=== PATIENT | female | born 1970 | race Caucasian/White ===

== ENCOUNTER 2024-11-01 07:07 | Outpatient (CLI) | payer OTHER, SELFPAY ==
--- OUTSIDE RECORDS SUMMARY | 2024-09-25 09:00 | XMS_ITS | Encounter Summary ---
Author Organization [facility] er Address [address] [place] [address] Care Team Providers Care Tugboat Pilot Name Role Phone Gem Salazar APRN Primary Care Provider Reason for Visit * Reason Comments Cyst Cyst on lower left b ack - possible cellulitis.Started on 09/17 chest congestion Chest congestion sin ce 09/23 - possibly due to traveling Encounter Details Date Type Department Care Team (Late st Contact Info) Description 09/25/2024 9:00 AM CDT Office Visit [facility] [address] [place] [address] Gem Salazar, WALL SCRAPER [address] [place] [address] Cellulitis of buttock, left (Primary Dx) Social History Tobacco Use Types Packs/Day Years Used Date Smoking Tobacco: Former Cigarettes 1 8 0 01/1988 - 01/1996 Smokeless Tobacco: Never Alcohol Use Standard Drinks/Week Comments Not Currently 20 (1 standard drink = 0.6 oz pu re alcohol) B1300 Health Literacy Answer Date Recor ded How often do you need to hav e someone help you when you read instructions, pamphlets, or other written material from your doctor or pharmacy? Never 07/01/2024 [facility] Utilities Answer Date Recorded In the past 12 months has e electric, gas, oil, or water company threatened to shut off services in your home? No 07/01/2024 Humiliation, Afraid, Rape, and Kick questionnair e Answer Date Recorded Within the last year, have y ou been afraid of your partner or ex-partner? No 08/15/2024 Within the last year, have y ou been humiliated or emotionally abused in other ways by your partner or ex-partner? No Within the last year, have y ou been kicked, hit, slapped, or otherwise physically hurt by your partner or ex-partner? No 08/15/2024 Within the last year, have y ou been raped or forced to have any kind of sexual activity by your partner or ex-partner? No 08/15/2024 Social Connection and Isolation Panel [NHANES] A nswer Date Recorded In a typical week, how many times do you talk on the phone with family, friends, or neighbors? Once a week 07/01/19 How often do you get togethe r with friends or relatives? Twice a week 07/01/2024 How often do you attend [facility] or taoist services? 1 to 4 times per year 07/01/2024 Do you belong to any clubs o r organizations such as gnosticism groups, unions, fraternal or athletic groups, or school groups? No 07/01/2024 How often do you attend meet ings of the clubs or organizations you belong to? Never 07/01/2024 Are you , , di vorced, , never , or living with a partner? 07/01/2024 AUDIT-C Answer Date Recorded Q1: How often do you have a drink containing alc ohol? 2-3 times a week 07/01/2024 Q2: How many drinks containi ng alcohol do you have on a typical day when you are drinking? 3 or 4 07/01/2024 Q3: How often do you have si x or more drinks on one occasion? Less than monthly 07/01/2024 Overall Financial Resource Strain (CARDIA) Answe r Date Recorded How hard is it for you to pa y for the very basics like food, housing, medical care, and heating? Not very hard 07/01/2024 PHQ-2 Answer Date Recorded PHQ-9 Total Score 0 09/11/2024 [facility] - Occupational Stress Questionnaire Answer Date Recorded Do you feel stress - tense, restless, nervous, or anxious, or unable to sleep at night because your mind is troubled all the time - these days? Only a little 07/01/2024 Exercise Vital Sign Answer Date Recorde d On average, how many days pe r week do you engage in moderate to strenuous exercise (like a brisk walk)? 1 day 07/01/2024 On average, how many minutes do you engage in exercise at this level? 10 min 07/01/2024 Hunger Vital Sign Answer Date Recorded Within the past 12 months, y ou worried that your food would run out before you got the money to buy more. Never true 07/01/19 25 Within the past 12 months, t he food you bought just didn't last and you didn't have money to get more. Never true 07/01/2024 PRAPARE - Transportation Answer Date Re corded In the past 12 months, has l ack of transportation kept you from medical appointments or from getting medications? No 06/15 In the past 12 months, has l ack of transportation kept you from meetings, work, or from getting things needed for daily living? No 07/01/2024 Housing Stability Vital Sign Answer Durga e Recorded In the last 12 months, was t here a time when you were not able to pay the mortgage or rent on time? No 11/17/2022 In the last 12 months, how many places have you lived? 2 11/17/2022 In the last 12 months, was t here a time when you did not have a steady place to sleep or slept in a correction (including now)? No 11/17/2022 Housing Stability Vital Sign Answer Durga e Recorded In the last 12 months, was t here a time when you were not able to pay the mortgage or rent on time? No 07/01/2024 In the past 12 months, how m any times have you moved where you were living? 0 07/01/2024 At any time in the past 12 [facility], were you homeless or living in a correction (including now)? No 07/01/2024 Interpersonal Safety Questionnaire Answer Date Recorded How often does anyone, sharda corona family and friends, physically hurt you? Never 08/15/2024 How often does anyone, sharda corona family and friends, insult or talk down to you? Never 08/15/2024 How often does anyone, sharda corona family and friends, threaten you with harm? Never 08/15/2024 How often does anyone, sharda corona family and friends, threaten you with harm? Never 08/15/2024 Education Answer Date Recorded What is the highest level of school you have completed or the highest degree you have received? Bachelor's degree (e.g., BA, AB, BS) 03/09/2021 Comments No Sex and Gender Information Value Date Recorded Sex Assigned at Female 07/11/2023 1:56 PM CHUMMER Legal Sex Female 8:18 PM CDT Gender Identity Female 07/11/2023 1:56 PM CHUMMER Sexual Orientation Straight 07/11/2023 1: 56 PM CHUMMER Occupation Industry Job Start Date Job End Date in [place], [place] Not on file Not on file Not on file documented as of this encounter Last Filed Vital Signs Vital Sign Reading Time Taken Comments Blood Pressure 143/85 09/25/2024 8:53 AM CDT Pulse 82 09/25/2024 8:53 AM CDT Temperature 36.8 C (98.3 F) 09/25/2024 8:53 AM CDT Respiratory Rate 16 09/25/2024 8:53 AM CDT Oxygen Saturation 94% 09/25/2024 8:53 AM CDT Inhaled Oxygen Concentration - - Weight 103 kg (226 lb) 09/25/2024 8:53 AM CDT Height 176.3 cm (5' 9.41) 09/25/2024 8:53 AM CD T Body Mass Index 32.98 09/25/2024 8:53 AM CDT documented in this encounter Patient Instructions * Patient Instructions* Gem Salazar APRN - 09/25/2024 9:00 AM CDT Start Cephalexin (Keflex) 1 tablet 4 x day for 10 days Start Mupirocin ointment topically 3 x day Hot packs topically up to 4 x day documented in this encounter Progress Notes * Gem Salazar, WALL SCRAPER - 09/25/2024 9:00 AM CDT Images from the original note were not included. Subjective Patient ID: Heather Gallardo is a 53 y.o. female. Chief Complaint Patient presents with Cyst Cyst on lower left back - possible cellulitis. Started on 09/17 chest congestion Chest congestion since 09/23 - possibly due to traveling HPI A provider reviewed the following portions of the patient's chart in this encounter and updated as appropriate: Tobacco Allergies Meds Problems Med Hx Surg Hx Fam Hx Review of Systems Constitutional: Negative. Negative for fatigue and fever. HENT: Negative. Negative for congestion, rhinorrhea and sore throat. Eyes: Negative. Respiratory: Negative. Negative for cough, chest tightness, shortness of breath and wheezing. Cardiovascular: Negative. Negative for chest pain, palpitations and leg swelling. Gastrointestinal: Negative. Negative for abdominal pain, constipation, diarrhea, nausea and vomiting. Endocrine: Negative. Genitourinary: Negative. Negative for dysuria, frequency and urgency. Musculoskeletal: Negative. Negative for arthralgias, gait problem and joint swelling. Skin: Positive for wound. Negative for color change and rash. Allergic/Immunologic: Negative. Neurological: Negative. Negative for dizziness, speech difficulty, numbness and headaches. Hematological: Negative. Psychiatric/Behavioral: Negative. Negative for agitation, behavioral problems, confusion, self-injury, sleep disturbance and suicidal ideas. The patient is not nervous/anxious. Objective Physical Exam Constitutional: Appearance: Normal appearance. She is well-developed and well-groomed. Cardiovascular: Rate and Rhythm: Normal rate and regular rhythm. Pulses: Normal pulses. Heart sounds: Normal heart sounds. Pulmonary: Effort: Pulmonary effort is normal. Breath sounds: Normal breath sounds and air entry. Skin: Findings: Erythema and wound present. Comments: 1 cm by 1 cm circular dark brown slough on right upper butt cheek. Slight redness around area measuring 5 cm by 4 cm. Neurological: General: No focal deficit present. Mental Status: She is alert and oriented to person, place, and time. Psychiatric: Mood and Affect: Mood normal. Behavior: Behavior normal. Behavior is cooperative. Thought Content: Thought content normal. Judgment: Judgment normal. Assessment/Plan Problem List Items Addressed This Visit Cellulitis of buttock, left - Primary Start Cephalexin (Keflex) 1 tablet 4 x day for 10 days Start Mupirocin ointment topically 3 x day Hot packs topically up to 4 x day Relevant Medications cephalexin (KEFLEX) 500 MG capsule mupirocin (BACTROBAN) 2 % ointment documented in this encounter Miscellaneous Notes * Assessment & Plan Note - Gem Salazar APRN - 09/25/2024 12:38 PM CDT Associated Problem(s): Cellulitis of buttock, left Start Cephalexin (Keflex) 1 tablet 4 x day for 10 days Start Mupirocin ointment topically 3 x day Hot packs topically up to 4 x day documented in this encounter Plan of Treatment Upcoming Encounters Date Type Department Care Team (Late st Contact Info) Description 11/14/2024 1:00 PM CDT Office Visit [facility] [address] [place], [place] [phone] Santa Schroeder, DPM [address] [place] [phone] 11/22/2024 1:00 PM CDT Appointment [facility] [address] [place] [phone] documented as of this encounter Visit Diagnoses Diagnosis Cellulitis of buttock, left- Primary documented in this encounter Care Teams Tugboat Pilot Relationship Specialty Start Date End Date Gem Salazar APRN [address] [place] [id number] PCP - General Family Medicine 10/19/22 documented as of this encounter
--- NOTE | 2024-11-01 07:15 | CRLHL7_ITS ---
For Patients: As a result of the Century Cures Act, medical imaging exams and procedure reports are released immediately into your electronic medical record. You may view this report before your referring provider. If you have questions, please contact your health care provider. Indication: Spondylosis with radiculopathy. Technique: MRI of the cervical spine was performed without the use of intravenous contrast. Comparison: None relevant available. Findings: The vertebral body heights appear maintained without evidence of fracture. No discrete T1 hypointense marrow infiltrating process. Mild multilevel disc height loss and degeneration. Straightening of the cervical lordosis. No abnormal cord signal. C2-3: No spinal canal or neural foraminal narrowing. Mild left facet arthropathy. C3-4: Disc degeneration without spinal canal narrowing. Mild left neural foraminal narrowing secondary to facet arthropathy. Right neural foramina is patent. C4-5: No spinal canal or neural foraminal narrowing. Mild facet arthropathy. C5-6: Disc osteophyte complex results in mild spinal canal narrowing. Moderately severe right and moderate left neural foraminal narrowing secondary to uncovertebral joint and facet arthropathy. C6-7: Disc degeneration with Modic type 2 endplate change. Disc osteophyte complex results in mild spinal canal narrowing. Moderately severe left and moderate right neural foraminal narrowing secondary to uncovertebral joint and facet arthropathy. C7-T1: No spinal canal or neural foraminal narrowing. Impression: 1. At C5-6, mild spinal canal with moderately severe right and moderate left neural foraminal narrowing. 2. At C6-7, mild spinal canal with moderately severe left and moderate right neural foraminal stenosis. 3. No abnormal cord signal. Dictated by Zelalem Perry MD @ 11/01/2024 3:16:47 PM (Electronically Signed)
--- NOTE | 2024-11-01 08:15 | CRLHL7_ITS ---
For Patients: As a result of the Century Cures Act, medical imaging exams and procedure reports are released immediately into your electronic medical record. You may view this report before your referring provider. If you have questions, please contact your health care provider. Indication: Spondylosis. Radiculopathy. Technique: Multiplanar, multisequence MRI of the lumbar spine was performed without intravenous contrast. Comparison: None relevant available. Findings: There are 5 lumbar type vertebral segments identified. The vertebral body heights are maintained without evidence of fracture. There is no discrete T1 hypointense marrow infiltrating process. The conus medullaris terminates at L1, normal. Cauda equina appears unremarkable. T12-L1: No spinal canal or neural foraminal stenosis. L1-2: No spinal canal or neural foraminal stenosis. L2-3: No spinal canal or neural foraminal stenosis. L3-4: No spinal canal or neural foraminal stenosis. L4-5: Disc degeneration. Disc bulge with facet arthropathy resulting in mild spinal canal narrowing. Mild right neural foraminal narrowing. Mild facet arthropathy. L5-S1: Disc degeneration, with Modic type 1 endplate change. Disc bulge results in mild to moderate left lateral recess narrowing. Encroachment without overt compression of the descending left S1 nerve. Moderate left and mild right neural foraminal narrowing. Moderate facet arthropathy. Moderate sacroiliac joint osteoarthritis. Impression: 1. At L5-S1, [id number] left lateral recess stenosis. Moderate left neural foraminal narrowing. 2. At L4-5, mild spinal canal and right neural foraminal narrowing. Dictated by Zelalem Perry MD @ 11/01/2024 3:24:21 PM (Electronically Signed)
--- OUTSIDE RECORDS SUMMARY | 2024-11-02 00:31 | XMS_ITS | Encounter Summary ---
Author Organization [facility] er Address [address] [place] [address] Care Team Providers Care Field Ring Assembler Name Role Phone Gem Salazar APRN Primary Care Provider Reason for Visit * Reason Comments Med Refill Encounter Details Date Type Department Care Team (Late st Contact Info) Description 10/17/2024 Refill [place] [address] [place] [address] Gem Salazar, PHLEBOTOMIST LAB ASSISTANT [address] [place], [place] [phone] Hypertension, unspecified type Social History Tobacco Use Types Packs/Day Years [...] from your doctor or pharmacy? Never 07/01/2024 [facility] Utilities Answer Date Recorded In the past [...] week 07/01/2024 How often do you attend chur ch or roman catholic services? 1 to 4 times per year 07/01/2024 Do you belong to any clubs o r organizations such as denominational groups, unions, fraternal or athletic groups, or [...] Date Recorded PHQ-9 Total Score 0 09/11/2024 [facility] of Occupat ional Health - Occupational Stress [...] place to sleep or slept in a detention (including now)? No 11/17/2022 Housing Stability Vital Sign Answer Durga e Recorded In the last 12 months, was t here a time when you were not able to pay the mortgage or rent on time? No 07/01/2024 In the past 12 months, how m any times have you moved where you were living? 0 07/01/2024 At any time in the past 12 m [facility], were you homeless or living in a detention (including now)? No 07/01/2024 Interpersonal Safety Questionnaire Answer Date Recorded How often does anyone, sharda corona family and friends, physically hurt you? Never 08/15/2024 How often does anyone, sharda corona family and friends, insult or talk down to you? Never 08/15/2024 How often does anyone, sharda corona family and friends, threaten you with harm? Never 08/15/2024 How often does anyone, inclu ding family and friends, threaten you with harm? Never 08/15/2024 Education Answer Date Recorded What is the highest level of school you have completed or the highest degree you have received? Bachelor's degree (e.g., BA, AB, BS) 03/09/2021 Comments No Sex and Gender Information Value Date Recorded Sex Assigned at Female 07/11/2023 1:56 PM CAFE OPERATOR Legal Sex Female 8:18 PM CDT Gender Identity Female 07/11/2023 1:56 PM CAFE OPERATOR Sexual Orientation Straight 07/11/2023 1: 56 PM CAFE OPERATOR Occupation Industry Job Start Date Job End Date in [place], [place] Not on file Not on file Not on file documented as of this encounter Miscellaneous Notes * Telephone Encounter - Pretty Guo MA - 10/23/2024 7:55 AM CDT Renewal sent to requesting pharmacy 09/12/2024 #90 +3 refills. losartan (Cozaar) 50 MG tablet Sig: Take 1 tablet (50 mg total) by mouth 1 (one) time each day On file. Sent to pharmacy as: Losartan Potassium 50 MG Oral Tablet (Cozaar) Class: Normal Route: Oral E-Prescribing Status: Receipt confirmed by pharmacy (09/12/2024 9:01 AM CDT) Pharmacy [address] documented in this encounter Plan of Treatment Upcoming Encounters Date Type Department Care Team (Late st Contact Info) Description 11/14/2024 1:00 PM CDT [facility] Visit [facility] [address] [place] [address] Santa Schroeder DPM [address] [place] [phone] 11/22/2024 1:00 PM CDT Appointment [facility] [address] [place] [address] documented as of this encounter Visit Diagnoses Diagnosis Hypertension, unspecified type documented in this encounter Care Teams Field Ring Assembler Relationship Specialty Start Date End Date Gem Salazar, PHLEBOTOMIST LAB ASSISTANT [address] [place] [id number] PCP - General Family Medicine 10/19/22 documented as of this encounter
--- OUTSIDE RECORDS SUMMARY | 2024-11-02 00:31 | XMS_ITS | Encounter Summary ---
Author Organization [facility] er Address [address] [place] [address] Care Team Providers Care Resist Coater Developer Name Role Phone HomeGem wrightOzzy WADE Primary Care Provider Reason for Visit * Reason Onset Date Comments Med Refill 12/07/2020 Encounter Details Date Type Department Care Team (Late st Contact Info) Description 12/07/2020 Refill [place] [address] [place] [address] Chel Gaitan MD Dysthymia Social History Tobacco Use Types Packs/Day Years Used Date Smoking Tobacco: Former Cigarettes 1 8 0 01/1988 - 01/1996 Smokeless Tobacco: Never Alcohol Use Standard Drinks/Week Comments Yes 7 (1 standard drink = 0.6 oz pur e alcohol) occasional AUDIT-C Answer Date Recorded Frequency of Alcohol Consumption Not on file 08/01/2018 Average Number of Drinks 1 or 2 019 Frequency of Binge Drinking Not on file 07/14 PHQ-2 Answer Date Recorded PHQ-9 Total Score 0 11/19/2020 Comments No Sex and Gender Information Value Date Recorded Sex Assigned at Female 07/11/2023 1:56 PM PLATE MILL MILL HAND Legal Sex Female 8:18 PM CDT Gender Identity Female 07/11/2023 1:56 PM PLATE MILL MILL HAND Sexual Orientation Straight 07/11/2023 1: 56 PM PLATE MILL MILL HAND documented as of this encounter Miscellaneous Notes * Telephone Encounter - Guillermina Fields RN - 12/07/2020 4:34 PM CDT Please advise on refill * Telephone Encounter - Delmis Leung LPN - 12/07/2020 3:05 PM CDT Last visit in provider department: 11/19/2020 Last visit requested medication was discussed: 11/25/19 Aleida Hooper Upcoming appointment with provider: Visit date not found Last Rx: 11/25/19 #90 3 refills by Aleida Hopoer Requested Prescriptions Pending Prescriptions Disp Refills ??? FLUoxetine (PROzac) 20 MG capsule 90 capsule 3 Sig: Take 1 capsule (20 mg total) by mouth 1 (one) time each day 11/19/20 PHQ9-0 GAD7-0 Vitals: BP Readings from Last 2 Encounters: 11/19/20 126/80 05/25/20 128/72 Patient is due for CP appointment. PSR/Nurse: Please contact patient to assist with scheduling. documented in this encounter Plan of Treatment Upcoming Encounters Date Type Department Care Team (Late st Contact Info) Description 11/14/2024 1:00 PM CDT [facility] [address] [place], [place] [phone] Santa Schroeder, DPM [address] [place] [phone] 11/22/2024 1:00 PM CDT Appointment [facility] [address] [place], [place] [phone] documented as of this encounter Visit Diagnoses Diagnosis Dysthymia Dysthymic disorder documented in this encounter Care Teams Resist Coater Developer Relationship Specialty Start Date End Date Gem Salazar APRN [address] [place] [phone] PCP - General Family Medicine 10/19/22 documented as of this encounter
--- OUTSIDE RECORDS SUMMARY | 2024-11-02 00:31 | XMS_ITS | Encounter Summary ---
Author Organization [facility] er Address [address] [place] [address] Care Team Providers Care Director Agricultural Services Name Role Phone Gem Salazar APRN Primary Care Provider Reason for Visit * Reason Onset Date Comments Med Refill 08/25/2023 Encounter Details Date Type Department Care Team (Late st Contact Info) Description 08/25/[address] [place] [address] Gem Salazar, EDUCATIONAL INTERPRETER [address] [place] [address] Anxiety and depression Social History Tobacco Use Types Packs/Day Years Used Date Smoking Tobacco: Former Cigarettes 1 8 0 01/1988 - 01/1996 Smokeless Tobacco: Never Alcohol Use Standard Drinks/Week Comments Not Currently 20 (1 standard drink = 0.6 oz pu re alcohol) Humiliation, Afraid, Rape, and Kick questionnair e Answer Date Recorded Within the last year, have y ou been afraid of your partner or ex-partner? No 11/17/2022 Within the last year, have y ou been humiliated or emotionally abused in other ways by your partner or ex-partner? No Within the last year, have y ou been kicked, hit, slapped, or otherwise physically hurt by your partner or ex-partner? No 11/17/2022 Within the last year, have y ou been raped or forced to have any kind of sexual activity by your partner or ex-partner? No 11/17/2022 Social Connection and Isolat ion Panel [NHANES] Answer Date Recorded In a typical week, how many times do you talk on the phone with family, friends, or neighbors? More than three times a week 11/17/2022 How often do you get togethe r with friends or relatives? More than three times a week 11/17/2022 How often do you attend chur or latter-day services? 1 to 4 times per year 11/17/2022 Do you belong to any clubs o r organizations such as hindu groups, unions, fraternal or athletic groups, or school groups? No 11/17/2022 How often do you attend meet ings of the clubs or organizations you belong to? Never 11/17/2022 Are you , , di vorced, , never , or living with a partner? 11/17/2022 AUDIT-C Answer Date Recorded Q1: How often do you have a drink containing alc ohol? 2-3 times a week 11/17/2022 Q2: How many drinks containi ng alcohol do you have on a typical day when you are drinking? 3 or 4 11/17/2022 Q3: How often do you have si x or more drinks on one occasion? Less than monthly 11/17/2022 Overall Financial Resource Strain (CARDIA) Answe r Date Recorded How hard is it for you to pa y for the very basics like food, housing, medical care, and heating? Not hard at all 11/17/2022 PHQ-2 Answer Date Recorded PHQ-9 Total Score 1 07/24/2023 [facility] - Occupational Stress Questionnaire Answer Date Recorded Do you feel stress - tense, restless, nervous, or anxious, or unable to sleep at night because your mind is troubled all the time - these days? Not at all 11/17/2022 Exercise Vital Sign Answer Date Recorde d On average, how many days pe r week do you engage in moderate to strenuous exercise (like a brisk walk)? 3 days 11/17/2022 On average, how many minutes do you engage in exercise at this level? 30 min 11/17/2022 Hunger Vital Sign Answer Date Recorded Within the past 12 months, y ou worried that your food would run out before you got the money to buy more. Never true 11/18/19 23 Within the past 12 months, t he food you bought just didn't last and you didn't have money to get more. Never true 11/17/2022 PRAPARE - Transportation Answer Date Re corded In the past 12 months, has l ack of transportation kept you from medical appointments or from getting medications? No 10/2022 In the past 12 months, has l ack of transportation kept you from meetings, work, or from getting things needed for daily living? No 11/17/2022 Housing Stability Vital Sign Answer [...] place to sleep or slept in a fpc (including now)? No 11/17/2022 Education Answer Date Recorded What is the highest level of school you have completed or the highest degree you have received? Bachelor's degree (e.g., BA, AB, BS) 03/09/2021 Comments No Sex and Gender Information Value Date Recorded Sex Assigned at Female 07/11/2023 1:56 PM ELEVATOR ERECTOR Legal Sex Female 8:18 PM CDT Gender Identity Female 07/11/2023 1:56 PM ELEVATOR ERECTOR Sexual Orientation Straight 07/11/2023 1: 56 PM ELEVATOR ERECTOR Occupation Industry Job Start Date Job End Date in [place], [place] Not on file Not on file Not on file documented as of this encounter Miscellaneous Notes * Telephone Encounter - Benitez Miller RN - 08/25/2023 3:17 PM CDT Called pt with Rx information * Telephone Encounter - Stone Roque MD - 08/25/2023 3:15 PM CDT Refilled as requested. * Telephone Encounter - Benitez Miller RN - 08/25/2023 3:10 PM CDT Called pt. Pt said this was discussed with Peggy on 07/23 visit. Don't see any mention of Prozac. Pt states they are leaving for a trip tomorrow and out for a week. Would like another provider to review and possibly give a short refill to get her through the week. Forwarded to Jude/gemfor review. * Telephone Encounter - Camille Beebe - 08/25/2023 3:02 PM CDT Patients refills for her FLUoxetine (PROzac) 20 MG capsule was never sent to the pharmacy. She is out and said Dr. Woods was going to fax a new RX over to [facility], patient will be waiting in [place] for refill, patient was informed it may not get sent today. documented in this encounter Plan of Treatment Upcoming Encounters Date Type Department Care Team (Late st Contact Info) Description 11/14/2024 1:00 PM CDT Office Visit [facility] [address] [place], [place] [phone] Santa Schroeder DPNick [address] [place] [phone] 11/22/2024 1:00 PM CDT Appointment [facility] [address] [place] [phone] documented as of this encounter Visit Diagnoses Diagnosis Anxiety and depression documented in this encounter Care Teams Director Agricultural Services Relationship Specialty Start Date End Date Gem Salazar APRN [address] [place] [id number] PCP - General Family Medicine 10/19/22 documented as of this encounter
--- OUTSIDE RECORDS SUMMARY | 2024-11-02 00:31 | XMS_ITS | Clinical Summary ---
Author Organization [facility] Address [address] [place] [id number] Care Team Providers Care Linotype Mechanic Name Role Phone Nonstaff, Doctor Primary Care Provider Unavailab le Allergies Active Allergy Reactions Criticality Noted Date Comments Metoclopramide Hcl Other - Describe In Comment Field 04/12/2013 convulsions Encounters Date Type Department Care Team Description 10/22/2024 1:30 PM CDT Ancillary Procedure [facility] [address] [place] [address] 10/22/2024 1:15 PM CDT Ancillary Procedure [facility] [address] [place] [address] 10/22/2024 Travel 10/22/2024 Orders Only [facility] [address] [place] [address] Delmis Trinh PA <No scans attached> from Last 3 Months Social History Tobacco Use Types Packs/Day Years Used Date Smoking Tobacco: Never Assessed Comments No Sex and Gender Information Value Date Recorded Sex Assigned at Not on file Legal Sex Female 11:29 AM NETWORK PRICING CONSULTANT Gender Identity Not on file Sexual Orientation Not on file Last Filed Vital Signs Vital Sign Reading Time Taken Comments Blood Pressure 115/71 04/12/2013 3:30 PM NETWORK PRICING CONSULTANT Pulse 66 04/12/2013 3:30 PM NETWORK PRICING CONSULTANT Temperature 36.9 C (98.4 F) 04/12/2013 11:37 AM NETWORK PRICING CONSULTANT Respiratory Rate 16 04/12/2013 3:30 PM NETWORK PRICING CONSULTANT Oxygen Saturation 97% 04/12/2013 3:30 PM NETWORK PRICING CONSULTANT Inhaled Oxygen Concentration - - Weight 90.7 kg (200 lb) 04/12/2013 11:37 AM NETWORK PRICING CONSULTANT Height 175.3 cm (5' 9.02) 04/12/2013 11:[address] Body Mass Index 29.52 04/12/2013 11:37 AM NETWORK PRICING CONSULTANT Plan of Treatment Health Maintenance Due Date Last Done Comments Tdap 1981 Depression screening for age 12+ 1982 HIV for age 15-65 1985 BMI (ht and wt on same day) for age 18+ 1988 Hepatitis C screening for age 18-79 1988 Hepatitis B series for 19+ (1 of 3 - 19+ 3-dose series ) 1989 Tetanus booster 1990 Pap test for age 21-65 12/06/1991 Colonoscopy through age 75 12/06/2015 Lipids for age 45-75 12/06/2015 Mammogram for age 45-75 12/06/2015 Pneumococcal series for age 50+ (1 of 1 - PCV) 021 Zoster (shingles) series for age 50+ (1 of 2) 12/06/19 21 COVID-19 vaccine series ( - season) Influenza Vaccine (Season Ended) 2025 Procedures Procedure Name Priority Date/Time Associated Diagnosis Comments XR SPINE LUMBAR 2 VIEWS STANDING Routine 10/22/2024 1:23 PM CDT Midline low back pain without sciatica, unspecified chronicity XR SPINE CERVICAL 2 VIEWS Routine 10/22/2024 1:15 PM CDT Neck pain from Last 3 Months Results * XR SPINE LUMBAR 2 VIEWS STANDING (10/22/2024 1:23 PM CDT) Anatomical Region Laterality Modality Spine, LUMBAR SPINE Digital Radi ography 10/22/2024 6:58 PM CDT Impressions 10/22/2024 6:58 PM CDT 1. No radiographic evidence of acute osseous injury. Dictated by William Whipple MD @ 10/22/2024 6:58:36 PM (Electronically Signed) Narrative 10/22/2024 6:58 PM CDT For Patients: As a result of the Cures Act, medical imaging exams and procedure reports are released immediately into your electronic medical record. You may view this report before your referring provider. If you have questions, please contact your health care provider. INDICATION: Low back pain. FINDINGS: Two views of the lumbar spine are submitted. No comparison. The overall stature and alignment of the lumbar spine is within normal limits. Intervertebral disc space height appears within normal limits. Nonspecific bowel gas pattern. Procedure Note Conrad Whipple, DO - 10/22/2024 For Patients: As a result of the s Act, medical imagingexams and procedure reports are released immediately into your electronicmedical record. You may view this report before your referring provider.If you have questions, please contact your health care provider. INDICATION: Low back pain. FINDINGS: Two views of the lumbar spine are submitted. No comparison. The overall stature and alignment of the lumbar spine is within normallimits. Intervertebral disc space height appears within normal limits.Nonspecific bowel gas pattern. IMPRESSION: 1. No radiographic evidence of acute osseous injury. Dictated by William Whipple MD @ 10/22/2024 6:58:36 PM (Electronically Signed) [facility] Final Result * XR SPINE CERVICAL 2 VIEWS (10/22/2024 1:15 PM CDT) Anatomical Region Laterality Modality CERVICAL SPINE Digital Radiogra phy 10/22/2024 7:04 PM CDT Impressions 10/22/2024 7:04 PM CDT 1. No radiographic evidence of acute osseous injury. 2. Degenerative changes at C6-7. Dictated by William Whipple MD @ 10/22/2024 7:04:32 PM (Electronically Signed) Narrative 10/22/2024 7:04 PM CDT For Patients: As a result of the Cures Act, medical imaging exams and procedure reports are released immediately into your electronic medical record. You may view this report before your referring provider. If you have questions, please contact your health care provider. INDICATION: Neck pain. FINDINGS: Two views of the cervical spine are submitted. No comparison. The overall stature and alignment of the cervical spine is within normal limits. The prevertebral soft tissues are within normal limits. Mild loss of intervertebral disc space height with endplate osteophyte formation at C6-7. Remainder of the intervertebral disc space height appears within normal limits. Procedure Note Conrad Whipple DO - 10/22/2024 For Patients: As a result of the Cures Act, medical imagingexams and procedure reports are released immediately into your electronicmedical record. You may view this report before your referring provider.If you have questions, please contact your health care provider. INDICATION: Neck pain. FINDINGS: Two views of the cervical spine are submitted. No comparison. The overall stature and alignment of the cervical spine is within normallimits. The prevertebral soft tissues are within normal limits. Mild lossof intervertebral disc space height with endplate osteophyte formation atC6-7. Remainder of the intervertebral disc space height appears withinnormal limits. IMPRESSION: 1. No radiographic evidence of acute osseous injury. 2. Degenerative changes at C6-7. Dictated by William Whipple MD @ 10/22/2024 7:04:32 PM (Electronically Signed) Del[facility] Final Result from Last 3 Months Insurance [id number] Care Teams Linotype Mechanic Relationship Specialty Start Date End Date Nonstaff, Doctor NON STAFF DOCTOR PCP - General 04/12/13
--- OUTSIDE RECORDS SUMMARY | 2024-11-02 00:31 | XMS_ITS | Clinical Summary ---
Author Organization [facility] er Address [address] [place] [address] Care Team Providers Care Carpenter Helper Name Role Phone Mayramelissa Gem Lara APRN Primary Care Provider Allergies Active Allergy Reactions Criticality Noted Date Comments Metoclopramide Other (see comments) High 04/12/2013 convulsions Seasonal Other (see comments) Medium 08/02/2006 Itchy watery eyes, cough Medications ibuprofen (ADVIL) 200 MG tablet Take 3 tablets (600 mg total) by mouth if needed for mild pain 4 Active Multiple Vitamins-Minera ls (Daily Multivitamin) capsule Take by mouth 1 (one) time each day Plexus brand Active Calcium-Magnesi um-Vitamin D (CALCIUM MAGNESIUM PO) Take by mouth 1 (one) time each day Plexus brand Active UNABLE TO FIND 2 (two) times a day Med Name: EASE by Plexus--anti-inf lammatory, turmeric Takes sporadically Active Probiotic Product (PROBIOTIC PO) Take 1 capsule by mouth 1 (one) time each day Plexus Brand called Probio5 Active FLUoxetine (PROzac) 20 MG capsuleIndicati ons:Anxiety and depression Take 1 capsule (20 mg total) by mouth 1 (one) time each day On file 90 capsule 3 5 026 Active esomeprazole (NexIUM) [address] capsuleIndicati ons:Gastroesoph ageal reflux disease, unspecified whether esophagitis present Take 1 capsule (20 mg total) by mouth 1 (one) time each day before breakfast Do not open capsule. On file. 90 capsule 3 5 026 Active losartan (Cozaar) 50 MG tabletIndicatio ns:Hypertension , unspecified type Take 1 tablet (50 mg total) by mouth 1 (one) time each day On file. 90 tablet 3 5 026 Active cephalexin (KEFLEX) 500 MG capsuleIndicati ons:Cellulitis of buttock, left Take 1 capsule (500 mg total) by mouth 4 (four) times a day for 10 days 40 capsule 5 025 mupirocin (BACTROBAN) 2 % ointmentIndicat ions:Cellulitis of buttock, left Apply topically 2 (two) times a day 30 g 1 5 025 Active Problems Problem Noted Date Diagnosed Date Cellulitis of buttock, left 09/25/2024 Assessment & Plan (09/25/2024 12:38 PM CDT): Start Cephalexin (Keflex) 1 tablet 4 x day for 10 days Start Mupirocin ointment topically 3 x day Hot packs topically up to 4 x day Hypertension 08/15/2024 Assessment & Plan (09/12/2024 12:53 PM CDT): Hypertension is improving with treatment. Dietary sodium restriction. Weight loss. Regular aerobic exercise. Continue current medications. Ambulatory blood pressure monitoring. Blood pressure will be reassessed at the next regular appointment. Continue Losartan (Cozaar) 50 mg daily Will recheck at next annual visit Assessment & Plan (08/15/2024 11:35 AM CDT): Hypertension is unchanged. Dietary sodium restriction. Weight loss. Regular aerobic exercise. Medication changes per orders. Blood pressure will be reassessed in 4 weeks. Start Losartan 50 mg daily Return in 4 weeks for blood pressure recheck Encounter for screening mamm ogram for malignant neoplasm of breast 08/15/2024 Assessment & Plan (08/15/2024 11:42 AM CDT): Mammogram ordered Nocturnal enuresis 08/15/2024 Assessment & Plan (08/15/2024 11:43 AM CDT): U/A ordered Continue Kegel exercises If you would like, we can send you to physical therapy. Declines at this time. If physical therapy does not work, we will refer to urology Chronic neck pain 08/15/2024 Assessment & Plan (08/15/2024 11:45 AM CDT): X-ray ordered Referral to [facility] [place] Chronic midline low back pain without sciatica 0 08/15/2024 Assessment & Plan (08/15/2024 11:44 AM CDT): X-ray ordered Referral to [facility] Gastroesophageal reflux disease 08/15/2024 Assessment & Plan (08/15/2024 11:36 AM CDT): Continue Esomepraxole (Nexium) 20 mg daily Anxiety and depression 10/19/2022 Assessment & Plan (08/15/2024 11:44 AM CDT): Psychological condition is improving with treatment. Continue current treatment regimen. Psychological condition will be reassessed at the next regular appointment. Continue Fluoxetine 20 mg daily Assessment & Plan (10/19/2022 1:38 PM CDT): Psychological condition is improving with treatment. Continue current treatment regimen. Psychological condition will be reassessed at the next regular appointment. Elevated blood pressure reading 10/19/2022 Assessment & Plan (10/19/2022 1:37 PM CDT): Elevated blood pressures today of 160/96, 142/82 and 148/88. Return in one month for blood pressure evaluation Preventative health care 03/09/2021 Assessment & Plan (08/15/2024 11:34 AM CDT): Declines Pneumococcal, Zoster and Influenza vaccines Fasting labs ordered Assessment & Plan (03/09/2021 11:21 AM CDT): {Breast cancer screening: due today {Cervical cancer screening: due today, nml 2014, no history of abnormal results, RF include h/o genital warts, onset of sexual activity <16 {Colon Cancer Screening: nml colonoscopy 2012, next due 2022 {Lung cancer screening: not indicated, 8 year pack history, former smoker {HIV Screening: blood donor, has been screened {Lipid screening: due today {Labs: DM screening indicated for elevated BMI Dysthymia 08/01/2018 Assessment & Plan (03/09/2021 11:22 AM CDT): TSH wnl 2015. On Prozac 20mg daily for >20 years, has tapered off in the past but this did not go well. Has not had any changes in other symptoms and no side effects, is pleased with the medication at its current dose. PHQ-9 score 0 today. Chronic idiopathic constipation 08/01/2018 Assessment & Plan (03/09/2021 11:22 AM CDT): Discussed fiber and hydration regimen. Resolved Problems Problem Noted Date Diagnosed Date Resolved Date Gastroesophageal reflux dise ase without esophagitis 08/01/2018 08/15/2024 Assessment & Plan (03/09/2021 11:07 AM CDT): Lifestyle changes have controlled symptoms, no medications needed. Encounters Date Type Department Care Team Description 10/17/[address] [address] Gem Salazar APRN Hypertension, unspecified type 09/25/2024 9:00 AM CDT Office Visit [facility] [address] [place] [address] Gem Salazar, SHERI Cellulitis of buttock, left (Primary Dx) 09/12/2024 9:20 AM CDT Office Visit [address] [address] Gem Salazar APRN Hypertension, unspecified type 08/15/2024 9:15 AM CDT Lab [address] [address] Encounter for vitamin deficiency screening; Screening for lipid disorders; Anxiety and depression; Nocturnal enuresis 08/15/2024 8:20 AM CDT Office Visit [address] [address] Gem Salazar APRN Preventative health care (Primary Dx); Anxiety and depression; Gastroesophageal reflux disease, unspecified whether esophagitis present; Chronic midline low back pain without sciatica; Chronic neck pain; Nocturnal enuresis; Encounter for vitamin deficiency screening; Screening for lipid disorders; Encounter for screening mammogram for malignant neoplasm of breast; Hypertension, unspecified type 08/15/[address] [address] Gem Salazar APRN [facility] Referral from Last 3 Months Immunizations Immunization Administration Dates Next Due DTaP 01/26/1990 Hep A / Hep B 05/11/2016 MMR 01/26/1990 TD Preservative Free 06/23/2004 Td 06/23/2004 Tdap 03/09/2021,03/09/2009 Family History Medical History Relation Comments No Known Problems Brother Depression Daughter 1 ADD / ADHD Daughter 2 Anxiety disorder Daughter 2 Cancer Father bladder Skin cancer Father BCC Depression Father's Sister 3 Cancer Half-Sister 1 skin Cancer Half-Sister 2 skin/cervical Early Maternal Grandfather Heart attack Maternal Grandfather cause of de ath Cancer Maternal Grandmother unknown can cer, abdominal area Hypertension Maternal Grandmother Cancer Mother OVARIAN Hypertension Mother No Known Problems Mother's Brother Alcohol abuse Paternal Grandfather Dementia Paternal Grandmother Rheum arthritis Paternal Grandmother Depression Sister 1 Melanoma Sister 1 Melanoma Sister 2 Relation Status Comments Brother Alive Daughter 1 Alive Daughter 2 Alive Father Alive Father's Sister 1 Alive Father's Sister 2 Alive Father's Sister 3 Alive Half-Sister 1 Alive Half-Sister 2 Alive Maternal Grandfather Maternal Grandmother Mother Mother's Brother Alive Paternal Grandfather Paternal Grandmother Sister 1 Alive Sister 2 Alive Son Alive Social History Tobacco Use Types Packs/Day Years Used Date Smoking Tobacco: Former Cigarettes 1 8 0 01/1988 - 01/1996 Smokeless Tobacco: Never Tobacco Cessation:Counseling Given: Not Answered Alcohol Use Standard Drinks/Week Comments Not Currently 20 (1 standard drink = 0.6 oz pu re alcohol) B1300 Health Literacy Answer Date Recor ded How often do you need to hav e someone help you when you read instructions, pamphlets, or other written material from your doctor or pharmacy? Never 07/01/2024 [facility] Utilities Answer Date Recorded In the past 12 months has th e [email or web address], gas, oil, or water company threatened to [...] friends, or neighbors? Once a week 07/01/19 25 How often do you get togethe r with friends or relatives? Twice a week 07/01/2024 How often do you attend chur or jehovah's witness services? 1 to 4 times per year 07/01/2024 Do you belong to any clubs o r organizations such as restoration groups, unions, fraternal or athletic groups, or [...] Date Recorded PHQ-9 Total Score 0 09/11/2024 [facility] - Occupational Stress Questionnaire Answer Date Recorded [...] place to sleep or slept in a retirement (including now)? No 11/17/2022 Housing Stability Vital Sign Answer Durga e Recorded In the last 12 months, was t here a time when you were not able to pay the mortgage or rent on time? No 07/01/2024 In the past 12 months, how m any times have you moved where you were living? 0 07/01/2024 At any time in the past 12 m [facility], were you homeless or living in a retirement (including now)? No 07/01/2024 Interpersonal Safety Questionnaire [...] Sex Assigned at Female 07/11/2023 1:56 PM [employer] Legal Sex Female 8:18 PM CDT Gender Identity Female 07/11/2023 1:56 PM [employer] Sexual Orientation Straight 07/11/2023 1: 56 PM [employer] Occupation Industry Job Start Date Job End Date in [place], [place] Not on file Not on file Not on file Last Filed Vital Signs [...] Mass Index 32.98 09/25/2024 8:53 AM CDT Plan of Treatment Upcoming Encounters Date Type Department Care Team (Late st Contact Info) Description 11/14/2024 1:00 PM CDT Office Visit [facility] [address] [place], [place] [phone] Santa Schroeder, DPM [address] [place] [address] 11/22/2024 1:00 PM CDT Appointment [facility] [address] [place] [address] Health Maintenance Due Date Last Done Comments CT Colonography 1970 FIT-DNA 1970 Sigmoidoscopy 1970 iFOBT 1970 Pneumococcal Vaccine: 50+ Years (1 of 1 - PCV) 2020 Zoster Vaccines (1 of 2) 2020 Mammogram 08/06/2024 08/07/2023, 12/0 06/2020, 06/22/2016, Additional history exists Influenza Vaccine (Season Ended) 2025 Pap Smear 03/09/2026 03/09/2021, 12/31/2013 DTaP,Tdap,and Td Vaccines (6 - Td or Tdap) 03/09/2031 03/09/2021, 03/09/2009, 06/23/2004, Additional history exists Colonoscopy 08/09/2033 08/10/2023, 12/28/2012 Colorectal Cancer Screening 08/09/2033 COVID-19 Vaccine Discontinued HPV Vaccines Aged Out No longer eligi ble based on patient's age to complete this topic Procedures Procedure Name Priority Date/Time Associated Diagnosis Comments URINALYSIS WITH REFLEX MICROSCOPIC Routine 08/15/2024 9:15 AM CDT Nocturnal enuresis ESTIMATED GLOMERULAR FILTRATION RATE (EGFR) Routine 08/15/2024 9:10 AM CDT Anxiety and depression CBC WITH AUTO DIFFERENTIAL Routine 08/15/2024 9:10 AM CDT COMPREHENSIVE METABOLIC PANEL Routine 08/15/2024 9:10 AM CDT Anxiety and depression LIPID PANEL Routine 08/15/2024 9:10 AM CDT Screening for lipid disorders VITAMIN D, TOTAL Routine 08/15/2024 9:10 AM CDT Encounter for vitamin deficiency screening VITAMIN B12 Routine 08/15/2024 9:10 AM CDT Encounter for vitamin deficiency screening FERRITIN Routine 08/15/2024 9:10 AM CDT Encounter for vitamin deficiency screening MAMMOGRAM BREAST SCREENING TOMOSYNTHESIS BILATERAL Routine 08/07/2023 9:45 AM CDT Screening mammogram for breast cancer PAP TEST Routine 03/09/2021 11:34 AM CDT Screening for cervical cancer from Last 3 Months or Most Recently Relevant to Health Maintenance Results * (ABNORMAL) Urinalysis with reflex microscopic (lab staff release/collect) (08/15/2024 9:15 AM CDT) Type CLEAN CATCH 08/15/2024 9:30 AM CDT [facility] Color, Urine YELLOW YELLOW 08/15/2024 9:30 AM CDT [facility] Clarity, Urine CLEAR CLEAR 08/15/2024 9:30 AM CDT [facility] Glucose, Urine NEGATIVE NEGATIVE mg/dL 08/15/2024 9:30 AM CDT [facility] Bilirubin, Urine NEGATIVE NEGATIVE 08/15/2024 9:30 AM CDT [facility] Ketones, Urine TRACE(A) NEGATIVE mg/dL 08/15/2024 9:30 AM CDT [facility] Specific Jacob, Urine >=1.030 1.000 ->=1.030 08/15/2024 9:30 AM CDT [facility] Blood, Urine NEGATIVE NEGATIVE 08/15/2024 9:30 AM CDT [facility] pH, Urine 5.5 5.0 - 7.0 08/15/2024 9:30 AM CDT [facility] Protein, Urine NEGATIVE NEGATIVE-TRA CE mg/dL 08/15/2024 9:30 AM CDT [facility] Urobilinogen, Urine 0.2 0.2 - 1.0 E.U./dL 08/15/2024 9:30 AM CDT [facility] Nitrite, Urine NEGATIVE NEGATIVE 08/15/2024 9:30 AM CDT [facility] Leukocytes, Urine NEGATIVE NEGATIVE 08/15/2024 9:30 AM CDT [facility] Urine (Urine, Clean Catch) 08/15/2024 9:15 AM CDT 08/15/2024 9:15 AM CDT Gem Salazar APRN LAB URINE ORDERABLES F inal Result Performing Organization Address City/[facility]/ZIP Co de Phone Number [facility] [address] [place] [address] * Estimated Glomerular Filtration Rate (eGFR) (08/15/2024 9:10 AM CDT) Estimated Glomerular Filtration Rate (eGFR) >60 08/15/2024 1:33 PM CDT [facility] Comment: GFR calculated from serum creatinine value Chronic Kidney Disease less than 60 mL/min/1.73 m2 Kidney Failure less than 15 mL/min/1.73 m2 Note: effective 05/11/2022: 2020 CKD-EPI Equation used 08/15/2024 9:10 AM CDT 08/15/2024 9:10 AM CDT Gem Salazar APRN LAB BLOOD ORDERABLES F inal Result [facility] [address] [place] [address] * Vitamin D, Total (08/15/2024 9:10 AM CDT) Vitamin D, Total 39.3 ng/mL 08/16/19 25 5:19 PM CDT [facility] Comment: Deficient <20 Insufficient 20-<30 Sufficient 30-100 Vitamin D2/D3 fractionation is recommended at the discretion of the clinician if Total Vitamin D is within deficient or insufficient range. Blood (Blood, Venous) 08/15/2024 9:10 AM CDT 08/15/2024 4:14 PM CDT Gem Salazar APRN LAB BLOOD ORDERABLES F inal Result [facility] [address] [place] [address] * CBC auto differential (08/15/2024 9:10 AM CDT) WBC 6.0 3.5 - 10.5 K/uL 08/15/2024 2:20 PM [facility] RBC 4.45 3.90 - 5.00 M/uL 08/15/2024 2:20 PM [facility] Hemoglobin 13.3 12.0 - 15.5 g/dL 08/15/2024 2:20 PM [facility] Hematocrit 40.5 35.0 - 44.0 % 08/15/2024 2:20 PM [facility] Platelets 263 150 - 450 K/uL 08/15/2024 2:20 PM [facility] MCV 91.0 81.6 - 98.3 fL 08/15/2024 2:20 PM [facility] MCH 29.9 26.0 - 32.0 pg 08/15/2024 2:20 PM [facility] MCHC 32.8 32.0 - 36.0 g/dL 08/15/2024 2:20 PM [facility] RDW 12.2 11.9 - 15.5 % 08/15/2024 2:20 PM [facility] NRBC %, Automated 0 % 08/15/2024 2:20 PM [facility] NRBC Absolute, Autmated 0.00 K/uL 08/15/2024 2:20 PM [facility] Comment: 0-4 Days: 0.01 -0.02 >=5 Days: 0.00 Neutrophils 65.0 % 08/15/2024 2:20 PM T [facility] Absolute Neutrophils 3.9 1.7 - 7.0 K/uL 08/15/2024 2:20 PM T [facility] Lymphocytes % 20.1 % 08/15/2024 2:20 PM T [facility] Absolute Lymphocytes 1.2 0.9 - 2.9 K/uL 08/15/2024 2:20 PM T [facility] Monocytes % 11.1 % 08/15/2024 2:20 PM [facility] Monocytes Absolute 0.7 0.3 - 0.9 K/uL 08/15/2024 2:20 PM [facility] Eosinophils 2.8 % 08/15/2024 2:20 PM [facility] Absolute Eosinophils 0.2 0.1 - 0.5 K/uL 08/15/2024 2:20 PM [facility] Basophils 0.8 % 08/15/2024 2:20 PM [facility] Absolute Basophils 0.0 0.0 - 0.1 K/uL 08/15/2024 2:20 PM [facility] Immature Leukocytes 0.2 % 08/15/2024 2:20 PM [facility] Immature Leukocytes Absolute 0.01 0.00 - 0.04 K/uL 08/15/2024 2:20 PM [facility] 08/15/2024 9:10 AM CDT 08/15/2024 12:50 PM CDT us Gem Salazar APRN LAB BLOOD ORDERABLES F inal Result [facility] [address] [place] [address] * Ferritin (08/15/2024 9:10 AM CDT) Ferritin 36 11 - 264 ng/mL 08/15/2024 5:36 PM CDT [facility] Comment: The results from this or any other diagnostic test should be used and interpreted only in the context of the overall clinical picture. Biotin levels in serum remain elevated for up to 24 hours after oral or intravenous biotin administration and may interfere with this assay to produce unreliable results. Heterophilic antibodies in serum or plasma samples may cause interference in immunoassays. Exposure to animal antigens, either in the environment or as part of treatment or imaging procedures, may have circulating anti-animal antibodies present. These antibodies may interfere with the assay reagents to produce unreliable results. Results which are inconsistent with clinical observations indicate the need for additional testing. Blood (Blood, Venous) 08/15/2024 9:10 AM CDT 08/15/2024 4:14 PM CDT Gem Salazar APRN LAB BLOOD ORDERABLES F inal Result Performing Organization Address [facility] Co de Phone Number [facility] [address] [place], [place] [id number] * Vitamin B12 (08/15/2024 9:10 AM CDT) [facility] Vitamin B-12 732 239 - 931 pg/mL 08/15/2024 5:59 PM CDT [facility] Comment: The results from this or any other diagnostic test should be used and interpreted only in the context of the overall clinical picture. Biotin levels in serum remain elevated for up to 24 hours after oral or intravenous biotin administration and may interfere with this assay to produce unreliable results. Exposure to animal antigens, either in the environment or as part of treatment or imaging procedures, may have circulating anti-animal antibodies present. These antibodies may interfere with the assay reagents to produce unreliable results. Blood (Blood, Venous) 08/15/2024 9:10 AM CDT 08/15/2024 4:14 PM CDT Gem Salazar APRN LAB BLOOD ORDERABLES F inal Result Performing Organization Address [facility] Co de Phone Number [facility] [address] [place], [place] [id number] * (ABNORMAL) Lipid panel (08/15/2024 9:10 AM CDT) Cholesterol 192 0 - 199 mg/dL 08/15/2024 1:33 PM CDT [facility] Comment: Recommended by National Cholesterol Education Program (ATP III) -------- Cholesterol Ranges -------- <200 Desirable 200-239 Borderline high >=240 High Triglycerides 67 0 - 149 mg/dL 08/15/2024 1:33 PM CDT [facility] Comment: -------- TRIG Ranges -------- <150 Normal 150-199 Borderline high 200-499 High >=500 Very high HDL 67 40 - 250 mg/dL 08/15/2024 1:33 PM CDT [facility] Comment: -------- HDL Ranges -------- <40 Low 40-59 Normal >=60 Optimal LDL Calculated 112(H) 0 - 99 mg/dL 08/15/2024 1:33 PM CDT [facility] Comment: -------- LDL Ranges -------- <100 Optimal 100-129 Near optimal/above optimal 130-159 Borderline high 160-189 High >=190 Very high Fasting? Yes 08/15/2024 9:10 AM T [facility] Blood 08/15/2024 9:10 AM CDT 08/15/2024 12:49 PM CDT Gem Salazar APRN LAB BLOOD ORDERABLES F inal Result [facility] [address] [place] [address] * (ABNORMAL) Comprehensive metabolic panel (08/15/2024 9:10 AM CDT) Total Protein 7.6 6.3 - 8.2 g/dL 08/15/2024 1:33 PM CDT [facility] Albumin, Serum 4.2 3.5 - 5.0 g/dL 08/15/2024 1:33 PM [facility] Total Bilirubin <0.7 0.1 - 1.0 mg/dL 08/15/2024 1:33 PM [facility] AST 37 8 - 43 U/L 08/15/2024 1:33 PM [facility] Alkaline Phosphatase 53 38 - 128 U/L 08/15/2024 1:33 PM [facility] ALT (SGPT) 39(H) 0 - 34 U/L 08/15/2024 1:33 PM [facility] Sodium 139 135 - 145 mEq/L 08/15/2024 1:33 PM [facility] Potassium 5.2(H) 3.5 - 5.1 mEq/L 08/15/2024 1:33 PM [facility] Chloride 107 98 - 107 mEq/L 08/15/2024 1:33 PM [facility] CO2 28 22 - 29 mmol/L 08/15/2024 1:33 PM [facility] BUN 18 5 - 25 mg/dL 08/15/2024 1:33 PM [facility] Creatinine 0.75 0.40 - 1.20 mg/dL 08/15/2024 1:33 PM [facility] Glucose 120(H) 70 - 100 mg/dL 08/15/2024 1:33 PM [facility] Calcium, Total,S 9.8 8.4 - 10.2 mg/dL 08/15/2024 1:33 PM [facility] Anion Gap 4 4 - 13 08/15/2024 1:33 PM [facility] Comment: The anion gap is calculated with the following formula: AGAP = Na ? (Cl + CO2). Blood 08/15/2024 9:10 AM CDT 08/15/2024 12:49 PM T us Gem Salazar INTERNAL SALESPERSON LAB BLOOD ORDERABLES F inal Result [facility] [address] [place] [id number] * Mammogram breast screening tomosynthesis bilateral (08/07/2023 9:45 AM CDT) Anatomical Region Laterality Modality Breast Bilateral Mammography 08/07/2023 9:45 AM CDT Impressions 08/07/2023 10:32 AM CDT IMPRESSION: BILATERAL BREASTS Negative, no evidence of malignancy. Normal interval follow-up is recommended in 12 months. ASSESSMENT: BI-RADS 1: Final Overall Assessment: Negative ResultCode BIRADS: 1 Side: B-Bilateral Breast composition: 2-There are scattered areas of fibroglandular density Recommendation: N-Normal interval follow up in 12 months CAD REVIEW: Computer aided detection equipment was used during the interpretation of this study. - Narrative 08/07/2023 10:32 AM CDT EXAM DESCRIPTION: MAMMOGRAM BILATERAL SCREENING DIGITAL WITH MARK INDICATION: screening RISK FACTOR: Family: No family history of breast cancer PROCEDURES PERFORMED: Bilateral digital mammogram with CAD and tomosynthesis COMPARISON: Comparison is made to images from 06/22/2016 (Bilateral) and images from 04/15/2021 (Bilateral) FINDINGS: Bilateral Breast Findings: There are scattered areas of fibroglandular density. No significant masses, calcifications or other abnormalities are seen. Procedure Note Leatha Catalan MD - 08/07/2023 EXAM DESCRIPTION: MAMMOGRAM BILATERAL SCREENING DIGITAL WITH MARK INDICATION: screening RISK FACTOR: Family: No family history of breast cancer PROCEDURES PERFORMED: Bilateral digital mammogram with CAD and tomosynthesis COMPARISON: Comparison is made to images from 06/22/2016 (Bilateral) and images from 04/15/2021 (Bilateral) FINDINGS: Bilateral Breast Findings: There are scattered areas of fibroglandular density. No significant masses, calcifications or other abnormalities are seen. IMPRESSION: BILATERAL BREASTS Negative, no evidence of malignancy. Normal interval follow-up is recommended in 12 months. ASSESSMENT: BI-RADS 1: Final Overall Assessment: Negative ResultCode BIRADS: 1 Side: B-Bilateral Breast composition: 2-There are scattered areas of fibroglandulardensity Recommendation: N-Normal interval follow up in 12 months CAD REVIEW: Computer aided detection equipment was used during the interpretation of this study. - us Varsha J. Markesan MD IMG BI PROCEDURES Lynette l Result * Pap Smear (03/09/2021 11:34 AM CDT) Sure Path PAP, screen 03/09/2021 11:34 AM CDT 03/10/2021 3:07 PM CDT Narrative [facility] - 03/15/2021 11:48 AM CDT [facility] [address] [place] [address] Patient: HEATHER SALAZAR Procedure: 03/09/2021 11:34 /Age/Sex: 1970, 50 Y, F Received: 03/10/2021 15:07 [place] Patient Location: [facility] Ordered by: VARSHA PELAYO MD Attending: VARSHA PELAYO MD FORGING ENGINEER CYTOLOGY FINAL REPORT SPECIMEN: (A) SURE PATH PAP, SCREEN SPECIMEN DESCRIPTION: Cervical/Endocervical Received cloudy specimen in SurePath vial. CLINICAL INFORMATION: LMP: 02/26/2021 Prev.normal: 2014 SPECIMEN ADEQUACY: Satisfactory for Evaluation. No endocervical cells/transformation zone component present. GENERAL CATEGORIZATION: Negative for Intraepithelial Lesion or Malignancy (NILM). INTERPRETATION/RESULTS: Shift in vaginal nancy suggestive of bacterial vaginosis. Comment: An inadequate endocervical/transformational zone component is not necessarily an indication for immediately repeating the pap. Correlation with the history and clinical exam are required. PAP Test Disclaimer Cervical cytology is a screening test primarily for squamous cancer and its precursors and has associated false-negative and false-positive results. Regular sampling and follow-up of unexplained clinical signs and symptoms are recommended to minimize the impact of false negative and false positive results. Screened By: Signed By: DIXIE AARON(ASCP) <Sign Out Dr. Kimble> Reported: 03/15/2021 Page 1 of 1 us Varsha Pelayo MD LAB CYTOLOGY ORDERABLE S Final Result [facility] [address] [place] [address] from Last 3 Months or Most Recently Relevant to Health Maintenance Insurance [address] [place] [phone] [employer] [place] [id number] Care Teams Carpenter Helper Relationship Specialty Start Date End Date Gem Salazar APRN [address] [place], [place] [address] [address] PCP - General Family Medicine 10/19/22
== END 2024-11-01 07:08 | disposition home or self-care (01) ==
PROVIDERS: PCP Physician Assistant Surgical; Visit Provider Physician Assistant Surgical
DX: M47.22 Other spondylosis with radiculopathy, cervical region (principal); M50.222 Other cervical disc displacement at C5-C6 level; M50.223 Other cervical disc displacement at C6-C7 level; M47.26 Other spondylosis with radiculopathy, lumbar region; M51.26 Other intervertebral disc displacement, lumbar region; M48.07 Spinal stenosis, lumbosacral region
CPT/HCPCS: 72141; 72148